=== PATIENT | female | born 1970 | race Caucasian/White ===

== ENCOUNTER → 2016-10-19 | Outpatient (CLI) | payer OTHER ==
[~2016-10-19] MED LIST: MOTRIN PO; MULTTAB4 PO; VITAD1000T PO
[2016-10-19 13:18] LABS: THYROID PEROXIDASE ANTIBODY < 28.0 U/ML (<60.0)
[2016-10-19 13:29] LABS: ALBUMIN 3.9 GM/DL (3.2-5.2); ALBUMIN/GLOBULIN RATIO 1.34 (1.00-1.93); ALKALINE PHOSPHATASE 54 U/L (45-117); ALT/SGPT 17 U/L (12-78); ANION GAP 7 MEQ/L (8-16); AST/SGOT 11 U/L (15-37); BILIRUBIN,TOTAL 0.7 MG/DL (0.2-1.0); BLOOD UREA NITROGEN 18 MG/DL (7-18); CALCIUM LEVEL 8.8 MG/DL (8.5-10.1); CARBON DIOXIDE LEVEL 28 MEQ/L (21-32); CHLORIDE LEVEL 107 MEQ/L (98-107); CREATININE FOR GFR 0.72 MG/DL (0.55-1.02); FREE T4 0.94 NG/DL (0.76-1.46); GLOMERULAR FILTRATION RATE > 60.0 (>58); GLUCOSE, FASTING 88 MG/DL (70-105); POTASSIUM SERUM 4.3 MEQ/L (3.5-5.1); SODIUM LEVEL 142 MEQ/L (136-145); TOTAL PROTEIN 6.8 GM/DL (6.4-8.2)
== END ==
LOC: M SMT 08:54
PROVIDERS: ATTEND Family Medicine
DX: R63.5 Abnormal weight gain (principal); L65.9 Nonscarring hair loss, unspecified

== ENCOUNTER → 2018-02-06 | Outpatient (CLI) | payer OTHER ==
[2018-02-06 14:21] LABS: BASO # 0.1 10^3/uL (0.0-0.2); BASO % 0.8 % (0.0-1.0); EOS # 0.1 10^3/uL (0.0-0.50); EOS % 1.6 % (0.0-3.0); HEMATOCRIT 39.6 % (36.0-47.0); HEMOGLOBIN 13.1 g/dl (12.0-15.5); IMMATURE GRANULOCYTE % 0.3 % (0-3.0); LYMPH # 2.1 10^3/uL (1.5-4.5); MEAN CORPUSCULAR HEMOGLOBIN 29.7 pg (27.0-33.0); MEAN CORPUSCULAR HGB CONC 33.1 g/dl (32.0-36.5); MEAN CORPUSCULAR VOLUME 89.8 fl (80.0-96.0); MONO # 0.4 10^3/uL (0.0-0.8); MONO % 5.5 % (0.0-5.0); NEUTROPHILS # 4.6 10^3/uL (1.8-7.7); NEUTROPHILS % 62.8 % (36.0-66.0); PLATELET COUNT, AUTOMATED 276 10^3/uL (150-450); RED BLOOD COUNT 4.41 10^6/uL (4.00-5.40); RED CELL DISTRIBUTION WIDTH 12.1 % (11.5-14.5); WHITE BLOOD COUNT 7.3 10^3/uL (4.0-10.0)
[2018-02-06 14:34] LABS: ALBUMIN 3.6 GM/DL (3.2-5.2); ALBUMIN/GLOBULIN RATIO 1.06 (1.00-1.93); ALKALINE PHOSPHATASE 53 U/L (45-117); ALT/SGPT 16 U/L (12-78); ANION GAP 6 MEQ/L (8-16); AST/SGOT 11 U/L (7-37); BILIRUBIN,TOTAL 0.6 MG/DL (0.2-1.0); BLOOD UREA NITROGEN 16 MG/DL (7-18); CALCIUM LEVEL 8.6 MG/DL (8.5-10.1); CARBON DIOXIDE LEVEL 27 MEQ/L (21-32); CHLORIDE LEVEL 108 MEQ/L (98-107); CHOLESTEROL LEVEL 193 MG/DL (<200); CHOLESTEROL RISK RATIO 2.757 (<5); CREATININE FOR GFR 0.84 MG/DL (0.55-1.30); FREE T4 0.91 NG/DL (0.76-1.46); GLOMERULAR FILTRATION RATE > 60.0 (>58); GLUCOSE, FASTING 86 MG/DL (70-100); HDL CHOLESTEROL 70 MG/DL (>40); NON-HDL-C 123 MG/DL; POTASSIUM SERUM 4.7 MEQ/L (3.5-5.1); SODIUM LEVEL 141 MEQ/L (136-145); TRIGLYCERIDES LEVEL 130 MG/DL (<150)
[2018-02-06 14:53] LABS: TOTAL 25(OH) VITAMIN D 18.3 NG/ML (30.0-100.0)
== END ==
LOC: M SMT 08:20
DX: Z13.29 Encounter for screening for other suspected endocrine disorder (principal); Z13.220 Encounter for screening for lipoid disorders; Z13.0 Encounter for screening for diseases of the blood and blood-forming organs and certain disorders involving the immune mechanism; E55.9 Vitamin D deficiency, unspecified
CPT/HCPCS: 84443

== ENCOUNTER → 2018-03-13 | Outpatient (CLI) | payer OTHER ==
[2018-03-13 18:10] LABS: FREE T4 1.06 NG/DL (0.76-1.46); THYROID STIMULATING HORMONE 0.651 uIU/ML (0.358-3.740)
[2018-03-13 18:16] LABS: BASO % 0.5 % (0.0-1.0); EOS # 0.1 10^3/uL (0.0-0.50); EOS % 1.1 % (0.0-3.0); HEMATOCRIT 39.2 % (36.0-47.0); HEMOGLOBIN 13.2 g/dl (12.0-15.5); IMMATURE GRANULOCYTE % 0.3 % (0-3.0); LYMPH # 2.1 10^3/uL (1.5-4.5); LYMPH % 27.1 % (24.0-44.0); MEAN CORPUSCULAR HEMOGLOBIN 29.8 pg (27.0-33.0); MEAN CORPUSCULAR HGB CONC 33.7 g/dl (32.0-36.5); MEAN CORPUSCULAR VOLUME 88.5 fl (80.0-96.0); MONO # 0.4 10^3/uL (0.0-0.8); MONO % 5.4 % (0.0-5.0); NEUTROPHILS # 5.2 10^3/uL (1.8-7.7); NEUTROPHILS % 65.6 % (36.0-66.0); PLATELET COUNT, AUTOMATED 283 10^3/uL (150-450); RED BLOOD COUNT 4.43 10^6/uL (4.00-5.40); RED CELL DISTRIBUTION WIDTH 12.6 % (11.5-14.5); WHITE BLOOD COUNT 7.9 10^3/uL (4.0-10.0)
[2018-03-14 11:11] LABS: THYROID PEROXIDASE ANTIBODY < 28.0 U/ML (<60.0)
[2018-03-15 15:28] LABS: TISSUE TRANSGLUTAMINASE IgA <2 U/mL (0-3); TISSUE TRANSGLUTAMINASE IgG <2 U/mL (0-5)
[2018-03-16 00:07] LABS: ANTINUCLEAR ANTIBODIES DIRECT Negative (Negative); Lyme Disease IgG/IgM Antibodie <0.91 ISR (0.00-0.90); Lyme Disease IgM Ab Quantitati <0.80 index (0.00-0.79)
== END ==
LOC: M SMT 15:25
DX: R19.7 Diarrhea, unspecified (principal); L50.8 Other urticaria
CPT/HCPCS: 84443

== ENCOUNTER 2018-12-13 03:51 | Emergency (ER) | payer BC, OTHER ==
[~2018-12-13] VITALS: Ht 170.2 cm; Wt 72.7 kg
[2018-12-13 05:03] LABS: BASO # 0.1 10^3/uL (0.0-0.2); EOS # 0.2 10^3/uL (0.0-0.50); EOS % 2.7 % (0.0-3.0); HEMATOCRIT 41.7 % (36.0-47.0); HEMOGLOBIN 13.9 g/dl (12.0-15.5); LYMPH # 2.1 10^3/uL (1.5-4.5); LYMPH % 35.8 % (24.0-44.0); MEAN CORPUSCULAR HEMOGLOBIN 30.1 pg (27.0-33.0); MEAN CORPUSCULAR HGB CONC 33.3 g/dl (32.0-36.5); MEAN CORPUSCULAR VOLUME 90.3 fl (80.0-96.0); MONO # 0.4 10^3/uL (0.0-0.8); MONO % 6.4 % (0.0-5.0); NEUTROPHILS # 3.2 10^3/uL (1.8-7.7); NEUTROPHILS % 53.9 % (36.0-66.0); PLATELET COUNT, AUTOMATED 262 10^3/uL (150-450); RED BLOOD COUNT 4.62 10^6/uL (4.00-5.40)
[2018-12-13 05:40] LABS: BLOOD UREA NITROGEN 14 MG/DL (7-18); CALCIUM LEVEL 8.4 MG/DL (8.5-10.1); CARBON DIOXIDE LEVEL 25 MEQ/L (21-32); CHLORIDE LEVEL 109 MEQ/L (98-107); CK-MB VALUE MASS < 1.0 NG/ML (<3.6); CPK CREATINE PHOSPHOKINASE 48 U/L (26-192); FREE T4 0.91 NG/DL (0.76-1.46); GLOMERULAR FILTRATION RATE > 60.0 (>58); GLUCOSE, FASTING 86 MG/DL (70-100); MB/CK RELATIVE INDEX 2.08 (< OR =4); POTASSIUM SERUM 4.4 MEQ/L (3.5-5.1); SODIUM LEVEL 141 MEQ/L (136-145); TROPONIN I < 0.02 NG/ML (< 0.10)
[2018-12-13 07:15] VITALS: BP 137/83
--- NOTE | 2018-12-13 08:19 | REP ---
Clinical: Acute chest pain . Comparison: 09/30/2012 . Findings: The mediastinum and cardiac silhouette are stable and within normal limits for portable technique. The lung candelario are clear without acute consolidation, effusion, or pneumothorax. Skeletal structures are intact. Impression: No acute cardiopulmonary process appreciated. Electronically Signed by Artemio Rebolledo MD 12/13/2018 08:09 A
--- NOTE | 2018-12-14 07:00 | ECGEPIP ---
Stationary ECG Study [facility] - ED Test Date: 2018-12-13 Pat Name: DANIAL WEBBER Department: Room: - Gender: F Pediatric Occupational Therapist: NARAYAN : 1970 Requested By: ALMA HERNÁNDEZ Order Number: [id number] Reading MD: Jenifer Swann Measurements Intervals [place] Rate: 84 P: 55 [place]: 146 QRS: 32 QRSD: 93 T: 29 QT: 388 QTc: 460 Interpretive Statements SINUS RHYTHM WITH OCCASIONAL VENTRICULAR PREMATURE COMPLEXES POSSIBLE LEFT ATRIAL ENLARGEMENT TYPE 3 BRUGADA PATTERN (NON-DIAGNOSTIC) Electronically Signed On 12-14-2018 6:59:42 EDT by Jenifer Swann
[2018-12-16 00:07] LABS: Lyme Disease IgG/IgM Antibodie <0.91 ISR (0.00-0.90); Lyme Disease IgM Ab Quantitati <0.80 index (0.00-0.79)
== END 2018-12-13 07:17 | disposition home or self-care (01) ==
LOC: M ED 03:51
DX: R20.2 Paresthesia of skin (principal); R00.2 Palpitations; R51 Headache; M54.9 Dorsalgia, unspecified

== ENCOUNTER 2019-04-16 11:37 | Emergency (ER) | payer BC ==
[~2019-04-16] VITALS: Ht 170.2 cm; Wt 91.0 kg
[2019-04-16] MEDS ORDERED: AMOX875T PO (11:52)
[2019-04-16] MEDS ORDERED: IBUP-1022 PO (11:52)
[2019-04-16] MEDS ORDERED: ONDANSETRON 4MG/2ML VIAL (J2405) IV ONE (13:30)
[2019-04-16] MEDS ORDERED: NS 1,000 ML IV ONE (13:30)
[2019-04-16 13:52] LABS: BASO % 0.4 % (0.0-1.0); EOS # 0.1 10^3/uL (0.0-0.50); EOS % 0.7 % (0.0-3.0); HEMATOCRIT 42.4 % (36.0-47.0); HEMOGLOBIN 14.2 g/dl (12.0-15.5); LYMPH # 1.6 10^3/uL (1.5-4.5); LYMPH % 16.9 % (24.0-44.0); MEAN CORPUSCULAR HEMOGLOBIN 30.1 pg (27.0-33.0); MEAN CORPUSCULAR HGB CONC 33.5 g/dl (32.0-36.5); MONO # 0.4 10^3/uL (0.0-0.8); MONO % 4.7 % (0.0-5.0); NEUTROPHILS % 76.8 % (36.0-66.0); PLATELET COUNT, AUTOMATED 270 10^3/uL (150-450); RED BLOOD COUNT 4.71 10^6/uL (4.00-5.40); WHITE BLOOD COUNT 9.2 10^3/uL (4.0-10.0)
[2019-04-16 14:29] LABS: ALT/SGPT 17 U/L (12-78); BILIRUBIN,DIRECT 0.2 MG/DL (0.0-0.2); BILIRUBIN,TOTAL 0.4 MG/DL (0.2-1.0); BLOOD UREA NITROGEN 12 MG/DL (7-18); CALCIUM LEVEL 9.4 MG/DL (8.5-10.1); CARBON DIOXIDE LEVEL 27 MEQ/L (21-32); CHLORIDE LEVEL 107 MEQ/L (98-107); CK-MB VALUE MASS < 1.0 NG/ML (<3.6); CPK CREATINE PHOSPHOKINASE 53 U/L (26-192); CREATININE FOR GFR 0.74 MG/DL (0.55-1.30); GLOMERULAR FILTRATION RATE > 60.0 (>58); GLUCOSE, FASTING 95 MG/DL (70-100); MAGNESIUM LEVEL 2.3 MG/DL (1.8-2.4); MB/CK RELATIVE INDEX 1.89 (< OR =4); POTASSIUM SERUM 4.6 MEQ/L (3.5-5.1); SODIUM LEVEL 141 MEQ/L (136-145); TOTAL PROTEIN 7.6 GM/DL (6.4-8.2); TROPONIN I < 0.02 NG/ML (< 0.10)
[2019-04-16] MEDS ORDERED: ONDA4TAB6 PO (15:59)
[2019-04-16 16:06] VITALS: BP 153/86
--- NOTE | 2019-04-18 07:44 | ECGEPIP ---
[facility] - ED Test Date: 2019-04-16 Pat Name: DANIAL WEBBER Department: Room: - Gender: Female Communications Station Manager: : 1970 Requested By: JUSTIN SHAFER Order Number: [id number] Reading MD: Jenifer Swann Measurements Intervals [place] Rate: 81 P: 46 [place]: 138 QRS: 24 QRSD: 91 T: 22 QT: 396 QTc: 461 Interpretive Statements SINUS RHYTHM POSSIBLE LEFT ATRIAL ENLARGEMENT POSSIBLE TYPE 3 BRUGADA PATTERN (NON-DIAGNOSTIC) similar to prior EKG 12/13/18 Electronically Signed on 04-18-2019 7:43:49 EDT by Jenifer Swann
== END 2019-04-16 16:07 | disposition home or self-care (01) ==
LOC: M ED 11:37
DX: R11.0 Nausea (principal); R53.81 Other malaise; M54.9 Dorsalgia, unspecified; Z79.2 Long term (current) use of antibiotics
CPT/HCPCS: 80048; 80076; 82550; 82553; 83735; 84443; 85025; 93005; 96374; 99284; J2405

== ENCOUNTER 2019-12-27 15:23 | Emergency (ER) | payer BC ==
[~2019-12-27] VITALS: Ht 170.2 cm; Wt 93.3 kg
[~2019-12-27 15:23] MED LIST changes: +AMOX875T PO; +IBUP-1022 PO; +ONDA4TAB6 PO
[2019-12-27] MEDS ORDERED: ISOVUE-370 76% 100ML VIAL As Ordered ONE (15:44)
[2019-12-27] MEDS ORDERED: ASPIRIN 81 MG CHEW TABLET PO ONE (15:45)
[2019-12-27 15:47] LABS: BASO % 0.6 % (0.0-1.0); EOS # 0.1 10^3/uL (0.0-0.5); HEMATOCRIT 40.7 % (36.0-47.0); HEMOGLOBIN 13.5 g/dl (12.0-15.5); LYMPH # 1.9 10^3/uL (1.5-5.0); LYMPH % 25.6 % (24.0-44.0); MEAN CORPUSCULAR HEMOGLOBIN 29.7 pg (27.0-33.0); MEAN CORPUSCULAR HGB CONC 33.2 g/dl (32.0-36.5); MEAN CORPUSCULAR VOLUME 89.5 fl (80.0-96.0); MONO # 0.3 10^3/uL (0.0-0.8); MONO % 4.7 % (0.0-5.0); NEUTROPHILS # 4.9 10^3/uL (1.5-8.5); NEUTROPHILS % 67.8 % (36.0-66.0); PLATELET COUNT, AUTOMATED 271 10^3/uL (150-450); RED BLOOD COUNT 4.55 10^6/uL (4.00-5.40); WHITE BLOOD COUNT 7.2 10^3/uL (4.0-10.0)
--- NOTE | 2019-12-27 15:57 | ECGEPIP ---
[facility] - ED Test Date: 2019-12-27 Pat Name: DANIAL WEBBER Department: Room: - Gender: Female Door Operator: nav rivero : 1970 Requested By: Jorge Mitchell Order Number: [id number] Reading MD: Jorge Mitchell Measurements Intervals [place] Rate: 85 P: 38 [place]: 136 QRS: 13 QRSD: 110 T: 11 QT: 362 QTc: 432 Interpretive Statements SINUS RHYTHM POSSIBLE LEFT ATRIAL ENLARGEMENT INCOMPLETE RIGHT BUNDLE BRANCH BLOCK POSSIBLE TYPE [address] T WAVE CHANGES CW 04/16/[address] T WAVE CHANGES Electronically Signed on 12-27-2019 15:56:43 EDT by Jorge Mitchell
[2019-12-27 15:59] LABS: INR 1.04; PROTHROMBIN TIME 13.3 SECONDS (11.8-14.0)
[2019-12-27 16:00] LABS: PARTIAL THROMBOPLASTIN TIME 30.1 SECONDS (25.0-38.4)
--- NOTE | 2019-12-27 16:02 | REP ---
Portable chest x-ray: Single view. History: Chest pain. Comparison study: December 13, 2018. Findings: The lungs are well inflated and clear. The pleural angles are sharp. Heart size is normal. Pulmonary vasculature is not increased. No significant bony abnormality is appreciated. Impression: Negative portable chest x-ray. Electronically Signed by Maximilian Correia MD 12/27/2019 03:54 P
[2019-12-27 16:36] LABS: ALBUMIN 3.8 GM/DL (3.2-5.2); ALT/SGPT 15 U/L (12-78); BILIRUBIN,DIRECT 0.1 MG/DL (0.0-0.2); BILIRUBIN,TOTAL 0.6 MG/DL (0.2-1.0); CK-MB VALUE MASS < 1.0 NG/ML (<3.6); CPK CREATINE PHOSPHOKINASE 48 U/L (26-192); FREE T4 1.09 NG/DL (0.76-1.46); LIPASE 119 U/L (73-393); MB/CK RELATIVE INDEX 2.08 (< OR =4); THYROID STIMULATING HORMONE 0.927 uIU/ML (0.358-3.740); TOTAL PROTEIN 7.4 GM/DL (6.4-8.2); TROPONIN I < 0.02 NG/ML (< 0.10)
[2019-12-27] MEDS ORDERED: KETOROLAC 30 MG/ML 1ML VIAL IV ONE (16:45)
[2019-12-27 17:15] VITALS: BP 146/93
--- NOTE | 2019-12-28 00:54 | REP ---
CT PULMONARY ANGIOGRAM WITH IV CONTRAST: HISTORY: Chest pain. Rule out pulmonary embolus. COMPARISON STUDIES: No comparison chest CT. Comparison chest x-ray is from earlier this date. CONTRAST DOSE: 75 mL of Isovue-[address] TECHNIQUE: Helical scanning is acquired and overlapping 1.5 mm and contiguous 3 mm axial images are reformatted. In addition, maximum intensity projection and multiplanar re-formation images are generated in sagittal and coronal imaging projections. CT PULMONARY ANGIOGRAPHIC FINDINGS: There is good opacification of the pulmonary arterial tree. There is no CT evidence of pulmonary embolus. Thoracic aorta enhances homogeneously. There is no evidence of dissection or aneurysm. The ascending aorta measures 3.6 cm in anteroposterior dimension at the level of the right main pulmonary artery. There is no evidence of pleural or pericardial effusion. No hilar or mediastinal mass or adenopathy is observed. Visualized upper abdominal structures are unremarkable. No bony abnormality is seen. IMPRESSION: Negative CT pulmonary angiogram. No CT evidence of pulmonary embolus. No acute cardiopulmonary disease seen. Unreviewed
== END 2019-12-27 17:30 | disposition home or self-care (01) ==
LOC: M ED 15:23
DX: R07.9 Chest pain, unspecified (principal); R94.31 Abnormal electrocardiogram [ECG] [EKG]; Z79.899 Other long term (current) drug therapy
CPT/HCPCS: 71045; 71275; 80047; 80076; 82550; 82553; 83690; 84439; 84443; 85025; 85610; 85730; 93005; 93041; 94760; 96374; 99285; J1885; Q9967

== ENCOUNTER 2020-01-08 03:38 | Emergency (ER) | payer BC ==
[~2020-01-08] VITALS: Ht 170.2 cm; Wt 92.7 kg
[~2020-01-08 03:38] MED LIST changes: -HYDR25TAB; -LOSA50TA88; -OMEP40CA97 PO
[2020-01-08] MEDS ORDERED: OMEP40CA97 PO (04:21)
[2020-01-08 04:23] LABS: BASO # 0.1 10^3/uL (0.0-0.2); BASO % 0.7 % (0.0-1.0); EOS # 0.1 10^3/uL (0.0-0.5); EOS % 1.6 % (0.0-3.0); HEMATOCRIT 39.1 % (36.0-47.0); LYMPH # 2.6 10^3/uL (1.5-5.0); LYMPH % 36.7 % (24.0-44.0); MEAN CORPUSCULAR HEMOGLOBIN 29.8 pg (27.0-33.0); MEAN CORPUSCULAR HGB CONC 33.2 g/dl (32.0-36.5); MEAN CORPUSCULAR VOLUME 89.7 fl (80.0-96.0); MONO # 0.4 10^3/uL (0.0-0.8); MONO % 6.3 % (0.0-5.0); NEUTROPHILS # 3.8 10^3/uL (1.5-8.5); NEUTROPHILS % 54.4 % (36.0-66.0); PLATELET COUNT, AUTOMATED 253 10^3/uL (150-450); RED BLOOD COUNT 4.36 10^6/uL (4.00-5.40)
[2020-01-08 04:52] LABS: ALBUMIN 3.7 GM/DL (3.2-5.2); ALT/SGPT 19 U/L (12-78); BILIRUBIN,DIRECT < 0.1 MG/DL (0.0-0.2); BILIRUBIN,TOTAL 0.2 MG/DL (0.2-1.0); BLOOD UREA NITROGEN 13 MG/DL (7-18); CALCIUM LEVEL 8.3 MG/DL (8.5-10.1); CARBON DIOXIDE LEVEL 26 MEQ/L (21-32); CHLORIDE LEVEL 112 MEQ/L (98-107); CK-MB VALUE MASS < 1.0 NG/ML (<3.6); CPK CREATINE PHOSPHOKINASE 82 U/L (26-192); CREATININE FOR GFR 0.97 MG/DL (0.55-1.30); GLOMERULAR FILTRATION RATE > 60.0 (>58); GLUCOSE, FASTING 88 MG/DL (70-100); LIPASE 170 U/L (73-393); MB/CK RELATIVE INDEX 1.22 (< OR =4); POTASSIUM SERUM 3.8 MEQ/L (3.5-5.1); SODIUM LEVEL 145 MEQ/L (136-145); TOTAL PROTEIN 7.4 GM/DL (6.4-8.2); TROPONIN I < 0.02 NG/ML (< 0.10)
[2020-01-08] MEDS ORDERED: PANTOPRAZOLE 40MG VIAL (C9113 PER 1) IV ONE (05:00)
[2020-01-08 09:37] LABS: CK-MB VALUE MASS < 1.0 NG/ML (<3.6); CPK CREATINE PHOSPHOKINASE 72 U/L (26-192); MB/CK RELATIVE INDEX 1.39 (< OR =4); TROPONIN I < 0.02 NG/ML (< 0.10)
[2020-01-08 10:15] VITALS: BP 143/88
--- NOTE | 2020-01-08 13:01 | ECGEPIP ---
[facility] - ED Test Date: 2020-01-08 Pat Name: DANIAL WEBBER Department: Room: - Gender: Female First Officer: janki : 1970 Requested By: Otis Balbuena Order Number: [id number] Reading MD: Otis Rudd Measurements Intervals [place] Rate: 106 P: 53 [place]: 177 QRS: 30 QRSD: 88 T: 31 QT: 342 QTc: 456 Interpretive Statements SINUS TACHYCARDIA POSSIBLE LEFT ATRIAL ENLARGEMENT INCOMPLETE RIGHT BUNDLE BRANCH BLOCK RATE CHANGE COMPARED TO 12/27/19 Electronically Signed on 01-08-2020 13:01:30 EDT by Otis Rudd
--- NOTE | 2020-01-08 22:50 | ECGEPIP ---
[facility] - ED Test Date: 2020-01-08 Pat Name: DANIAL WEBBER Department: Room: - Gender: Female Process Control Engineer: : 1970 Requested By: Otis Balbuena Order Number: [id number] Reading MD: Otis Rudd Measurements Intervals [place] Rate: 91 P: 40 [place]: 137 QRS: 20 QRSD: 91 T: 25 QT: 369 QTc: 454 Interpretive Statements SINUS RHYTHM INCOMPLETE RIGHT BUNDLE BRANCH BLOCK SIMILAR TO PRIOR ON SAME DATE Electronically Signed on 01-08-2020 22:50:17 EDT by Otis Rudd
[2020-01-13] MEDS ORDERED: LOSA50TA88 (03:56)
[2020-01-13] MEDS ORDERED: HYDR25TAB (03:56)
== END 2020-01-08 10:22 | disposition home or self-care (01) ==
LOC: M ED 03:38
DX: R07.89 Other chest pain (principal)
CPT/HCPCS: 80048; 80076; 82550; 82553; 83690; 85025; 93005; 93041; 94760; 96374; 99285; C9113

== ENCOUNTER → 2020-01-08 | Outpatient (REF) | payer BC ==
[~2020-01-08] MED LIST changes: +HYDR25TAB; +LOSA50TA88; +OMEP40CA97 PO
== END ==
LOC: M LAB REF 15:21
PROVIDERS: ATTEND Internal Medicine Cardiovascular Disease
DX: R07.2 Precordial pain (principal)

== ENCOUNTER → 2020-06-15 | Outpatient (CLI) | payer BC ==
[~2020-06-15] MED LIST changes: +AMLO1TAB24 PO; +CHLO125TA PO; +HYDR25TAB; +LOSA50TA88; +LOSA50TA88 PO; +OMEP40CA97 PO; +PANT40TA29 PO
== END ==
LOC: M LABSMTC 11:38
PROVIDERS: ATTEND Anesthesiology
DX: Z01.812 Encounter for preprocedural laboratory examination (principal); Z20.828 Contact with and (suspected) exposure to other viral communicable diseases
CPT/HCPCS: C9803; U0003

== ENCOUNTER 2020-06-20 11:50 | Day surgery (SDC) | payer BC ==
[~2020-06-20] VITALS: Ht 170.2 cm; Wt 88.9 kg
[~2020-06-20 11:50] MED LIST changes: +NS 1,000 ML IV ONE; +propofoL 500 MG/50 ML VIAL As Ordered ONE
[2020-06-20] MEDS ORDERED: fentaNYL 100 MCG/2 ML INJECTION (J3010) As Ordered ONE (12:16)
[2020-06-20] MEDS ORDERED: LIDOCAINE 2% 100MG/5ML SDV (FOR ANES.) As Ordered ONE (13:41)
--- NOTE | 2020-06-20 14:31 | ROOR ---
Patient Name: Isa Obrien Procedure Date: 06/20/2020 1:41 PM Date of : 1970 Age: 49 Room: [facility] Gender: Female Note Status: Finalized Procedure: Upper GI endoscopy Indications: Unexplained chest pain, Chest pain (non cardiac) Providers: See Phan MD Referring MD: Jayla ORTIZ DO Requesting Provider: Medicines: Monitored Anesthesia Care Complications: No immediate complications. Procedure: Pre-Anesthesia Assessment: - Prior to the procedure, a History and Physical was performed, and patient medications and allergies were reviewed. The patient is competent. The risks and benefits of the procedure and the sedation options and risks were discussed with the patient. All questions were answered and informed consent was obtained. Patient identification and proposed procedure were verified by the physician, the nurse and the anesthesiologist in the procedure room. Mental Status Examination: alert and oriented. Airway Examination: normal oropharyngeal airway and neck mobility. Respiratory Examination: clear to auscultation. CV Examination: normal. Prophylactic Antibiotics: The patient does not require prophylactic antibiotics. Prior Anticoagulants: The patient has taken no previous anticoagulant or antiplatelet agents. ASA Grade Assessment: II - A patient with mild systemic disease. After reviewing the risks and benefits, the patient was deemed in satisfactory condition to undergo the procedure. The anesthesia plan was to use monitored anesthesia care (MAC). Immediately prior to administration of medications, the patient was re-assessed for adequacy to receive sedatives. The heart rate, respiratory rate, oxygen saturations, blood pressure, adequacy of pulmonary ventilation, and response to care were monitored throughout the procedure. The physical status of the patient was re-assessed after the procedure. The Endoscope was introduced through the mouth, and advanced to the second part of duodenum. The upper GI endoscopy was accomplished without difficulty. The patient tolerated the procedure well. Findings: No gross lesions were noted in the entire esophagus. Biopsies were obtained from the proximal and distal esophagus with cold forceps for histology of suspected eosinophilic esophagitis. Verification of patient identification for the specimen was done by the physician and nurse using the patient's name, date and medical record number. Estimated blood loss was minimal. The Z-line was regular and was found 40 cm from the incisors. Scattered mild inflammation characterized by erythema, friability and granularity was found in the gastric antrum. Biopsies were taken with a cold forceps for Helicobacter pylori testing. The duodenal bulb and second portion of the duodenum were normal. Impression: - No gross lesions in esophagus. Biopsied. - Z-line regular, 40 cm from the incisors. - Gastritis. Biopsied. - Normal duodenal bulb and second portion of the duodenum. Recommendation: - Patient has a contact number available for emergencies. The signs and symptoms of potential delayed complications were discussed with the patient. Return to normal activities tomorrow. Written discharge instructions were provided to the patient. - High fiber diet. - Continue present medications. - Await pathology results. - Telephone GI clinic for pathology results in 2 weeks. - Return to GI clinic if persistent symptoms or new symptoms. - Return to primary care physician. See Phan MD See Phan MD 06/20/2020 2:31:07 PM Electronically signed by See Phan MD Number of Addenda: 0 Note Initiated On: 06/20/2020 1:41 PM Estimated Blood Loss: Estimated blood loss was minimal.
--- NOTE | 2020-06-20 14:48 | ROOR ---
Patient Name: Isa Obrien Procedure Date: 06/20/2020 1:42 PM Date of : 1970 Age: 49 Room: [facility] Gender: Female Note Status: Finalized Procedure: Colonoscopy Indications: Screening for colon cancer: Family history of colorectal cancer in distant relative(s) before age 60 Providers: See Phan MD Referring MD: Jayla ORTIZ DO Requesting Provider: Medicines: Monitored Anesthesia Care Complications: No immediate complications. Procedure: Pre-Anesthesia Assessment: - Prior to the procedure, a History and Physical was performed, and patient medications and allergies were reviewed. The patient is competent. The risks and benefits of the procedure and the sedation options and risks were discussed with the patient. All questions were answered and informed consent was obtained. Patient identification and proposed procedure were verified by the physician, the nurse and the anesthesiologist in the procedure room. Mental Status Examination: alert and oriented. CV Examination: normal. Prophylactic Antibiotics: The patient does not require prophylactic antibiotics. Prior Anticoagulants: The patient has taken no previous anticoagulant or antiplatelet agents. After reviewing the risks and benefits, the patient was deemed in satisfactory condition to undergo the procedure. The anesthesia plan was to use monitored anesthesia care (MAC). Immediately prior to administration of medications, the patient was re-assessed for adequacy to receive sedatives. The heart rate, respiratory rate, oxygen saturations, blood pressure, adequacy of pulmonary ventilation, and response to care were monitored throughout the procedure. The physical status of the patient was re-assessed after the procedure. The Colonoscope was introduced through the anus and advanced to the terminal ileum, with identification of the appendiceal orifice and IC valve. The colonoscopy was performed without difficulty. The patient tolerated the procedure well. The quality of the bowel preparation was good. The terminal ileum, ileocecal valve, appendiceal orifice, and rectum were photographed. Scope insertion time was 3 minutes. Scope withdrawal time was 9 minutes. The total duration of the procedure was 12 minutes. Findings: The perianal and digital rectal examinations were normal. The terminal ileum appeared normal. Five sessile polyps were found in the rectum, descending colon, transverse colon and ascending colon. The polyps were 4 to 10 mm in size. These polyps were removed with a hot snare. Resection and retrieval were complete. Verification of patient identification for the specimen was done by the physician and nurse using the patient's name, date and medical record number. Estimated blood loss was minimal. Multiple small-mouthed diverticula were found in the sigmoid colon. There was no evidence of diverticular bleeding. Non-bleeding external and internal hemorrhoids were found during retroflexion. The hemorrhoids were medium-sized. Impression: - The examined portion of the ileum was normal. - Five 4 to 10 mm polyps in the rectum, in the descending colon, in the transverse colon and in the ascending colon, removed with a hot snare. Resected and retrieved. - Moderate diverticulosis in the sigmoid colon. There was no evidence of diverticular bleeding. - Non-bleeding external and internal hemorrhoids. Recommendation: - Patient has a contact number available for emergencies. The signs and symptoms of potential delayed complications were discussed with the patient. Return to normal activities tomorrow. Written discharge instructions were provided to the patient. - High fiber diet. - Continue present medications. - Await pathology results. - Repeat colonoscopy in 3 years for surveillance of multiple polyps and due to family history of colon cancer. - Telephone GI clinic for pathology results in 2 weeks. - Return to primary care physician. See Phan MD See Phan MD 06/20/2020 2:47:25 PM Electronically signed by See Phan MD Number of Addenda: 0 Note Initiated On: 06/20/2020 1:42 PM Estimated Blood Loss: Estimated blood loss was minimal.
[2020-06-20 14:55] VITALS: BP 112/61
== END 2020-06-20 15:18 | disposition home or self-care (01) ==
LOC: M OPP 11:50
PROVIDERS: ATTEND Internal Medicine Gastroenterology
DX: Z12.11 Encounter for screening for malignant neoplasm of colon (principal); Z80.0 Family history of malignant neoplasm of digestive organs; R07.89 Other chest pain; K63.5 Polyp of colon; K57.30 Diverticulosis of large intestine without perforation or abscess without bleeding; K64.8 Other hemorrhoids; D13.0 Benign neoplasm of esophagus; D13.1 Benign neoplasm of stomach; K29.70 Gastritis, unspecified, without bleeding; I10 Essential (primary) hypertension; G43.909 Migraine, unspecified, not intractable, without status migrainosus; Z79.899 Other long term (current) drug therapy
CPT/HCPCS: 43239; 45385; 88305; J3010

== ENCOUNTER → 2021-04-20 | Outpatient (CLI) | payer BC ==
[~2021-04-20] MED LIST changes: +HYDR-3490; -HYDR25TAB; -NS 1,000 ML IV ONE; +OMEP40CA4 PO; -OMEP40CA97 PO; -propofoL 500 MG/50 ML VIAL As Ordered ONE
== END ==
LOC: M LAB 15:07
PROVIDERS: ATTEND Internal Medicine Endocrinology, Diabetes & Metabolism
DX: D35.02 Benign neoplasm of left adrenal gland (principal)

== ENCOUNTER 2021-09-25 04:18 | Emergency (ER) | payer BC ==
[~2021-09-25] VITALS: Ht 172.7 cm; Wt 101.9 kg
[~2021-09-25 04:18] MED LIST changes: +LOSA50TA28; +LOSA50TA28 PO; -LOSA50TA88; -LOSA50TA88 PO
[2021-09-25] MEDS ORDERED: FURO20TA2 (04:27)
[2021-09-25] MEDS ORDERED: ISOS1TAB35 (04:27)
[2021-09-25] MEDS ORDERED: ROSU5TAB5 (04:27)
[2021-09-25 04:57] LABS: BASO % 0.5 % (0.0-1.0); EOS # 0.1 10^3/uL (0.0-0.5); EOS % 1.7 % (0.0-3.0); HEMATOCRIT 39.5 % (36.0-47.0); HEMOGLOBIN 13.2 g/dl (12.0-15.5); LYMPH # 2.9 10^3/uL (1.5-5.0); LYMPH % 37.5 % (24.0-44.0); MEAN CORPUSCULAR HEMOGLOBIN 29.3 pg (27.0-33.0); MEAN CORPUSCULAR HGB CONC 33.4 g/dl (32.0-36.5); MEAN CORPUSCULAR VOLUME 87.6 fl (80.0-96.0); MONO # 0.6 10^3/uL (0.0-0.8); MONO % 7.3 % (2.0-8.0); NEUTROPHILS # 4.1 10^3/uL (1.5-8.5); NEUTROPHILS % 52.7 % (36.0-66.0); PLATELET COUNT, AUTOMATED 242 10^3/uL (150-450); RED BLOOD COUNT 4.51 10^6/uL (4.00-5.40); WHITE BLOOD COUNT 7.7 10^3/uL (4.0-10.0)
[2021-09-25 05:28] LABS: BLOOD UREA NITROGEN 12 MG/DL (7-18); CALCIUM LEVEL 8.7 MG/DL (8.5-10.1); CARBON DIOXIDE LEVEL 26 MEQ/L (21-32); CHLORIDE LEVEL 104 MEQ/L (98-107); CREATININE FOR GFR 0.71 MG/DL (0.55-1.30); GLOMERULAR FILTRATION RATE > 60.0 (>58); GLUCOSE, FASTING 99 MG/DL (70-100); POTASSIUM SERUM 3.5 MEQ/L (3.5-5.1); SODIUM LEVEL 138 MEQ/L (136-145)
[2021-09-25 05:45] LABS: CK-MB VALUE MASS < 1.0 NG/ML (<3.6); CPK CREATINE PHOSPHOKINASE 83 U/L (26-192)
[2021-09-25 06:11] LABS: CK-MB VALUE MASS < 1.0 NG/ML (<3.6); CPK CREATINE PHOSPHOKINASE 73 U/L (26-192); MB/CK RELATIVE INDEX 1.37 (< OR =4)
[2021-09-25] MEDS ORDERED: ISOVUE-370 76% 100ML VIAL As Ordered ONE (07:20)
[2021-09-25 09:23] VITALS: BP 142/77
== END 2021-09-25 09:25 | disposition home or self-care (01) ==
LOC: M ED 04:18
DX: R07.89 Other chest pain (principal); R91.8 Other nonspecific abnormal finding of lung field; J98.11 Atelectasis; R20.2 Paresthesia of skin; E27.9 Disorder of adrenal gland, unspecified; I10 Essential (primary) hypertension; Z79.899 Other long term (current) drug therapy
CPT/HCPCS: 36415; 71045; 71275; 80048; 82550; 82553; 85025; 93005; 93041; 94760; 99285; Q9967

== ENCOUNTER → 2021-12-13 | Outpatient (CLI) | payer BC ==
[~2021-12-13] MED LIST changes: +FURO20TA2; +ISOS1TAB35; +ROSU5TAB5
== END ==
LOC: M WHC 12:38
PROVIDERS: ATTEND Family Medicine
DX: E07.9 Disorder of thyroid, unspecified (principal)

== ENCOUNTER 2022-10-25 16:58 | Emergency (ER) | payer BC ==
[~2022-10-25] VITALS: Ht 170.2 cm; Wt 86.4 kg
[2022-10-25 16:58] VITALS: BP 151/92
[2022-10-25 17:41] LABS: BASO % 0.4 % (0.0-1.0); EOS # 0.1 10^3/uL (0.0-0.5); EOS % 1.2 % (0.0-3.0); HEMATOCRIT 38.2 % (36.0-47.0); HEMOGLOBIN 12.3 g/dl (12.0-15.5); LYMPH # 2.1 10^3/uL (1.5-5.0); LYMPH % 25.2 % (24.0-44.0); MEAN CORPUSCULAR HEMOGLOBIN 29.4 pg (27.0-33.0); MEAN CORPUSCULAR HGB CONC 32.2 g/dl (32.0-36.5); MEAN CORPUSCULAR VOLUME 91.2 fl (80.0-96.0); MONO # 0.5 10^3/uL (0.0-0.8); MONO % 6.2 % (2.0-8.0); NEUTROPHILS # 5.5 10^3/uL (1.5-8.5); NEUTROPHILS % 66.9 % (36.0-66.0); PLATELET COUNT, AUTOMATED 249 10^3/uL (150-450); RED BLOOD COUNT 4.19 10^6/uL (4.00-5.40); WHITE BLOOD COUNT 8.2 10^3/uL (4.0-10.0)
[2022-10-25 17:52] LABS: INR 0.9; PROTHROMBIN TIME 12.3 SECONDS (12.5-14.5)
[2022-10-25 17:53] LABS: PARTIAL THROMBOPLASTIN TIME 28.6 SECONDS (24.8-34.2)
[2022-10-25 18:10] LABS: LIPASE 34 U/L (12-53)
[2022-10-25 18:12] LABS: CPK CREATINE PHOSPHOKINASE 80 U/L (34-145)
[2022-10-25 18:16] LABS: ALBUMIN 3.5 G/DL (3.2-5.2); ALKALINE PHOSPHATASE 74 U/L (46-116); ALT/SGPT 17 U/L (7.0-40); AST/SGOT 18 U/L (<34); BILIRUBIN,DIRECT 0.2 MG/DL (<0.4); BILIRUBIN,TOTAL 0.6 MG/DL (0.3-1.2); BLOOD UREA NITROGEN 16 MG/DL (9-23); CALCIUM LEVEL 8.7 MG/DL (8.5-10.1); CARBON DIOXIDE LEVEL 26 MMOL/L (20-31); CHLORIDE LEVEL 103 MMOL/L (98-107); CK-MB VALUE MASS < 1.0 NG/ML (<3.6); CREATININE FOR GFR 0.74 MG/DL (0.55-1.30); FREE T4 1.01 NG/DL (0.89-1.76); GLOMERULAR FILTRATION RATE > 60.0 (>51); GLUCOSE, FASTING 95 MG/DL (60-100); MB/CK RELATIVE INDEX 1.25 (< OR =4); POTASSIUM SERUM 4.2 MMOL/L (3.5-5.1); SODIUM LEVEL 137 MMOL/L (136-145); THYROID STIMULATING HORMONE 1.263 uIU/ML (0.55-4.78); TOTAL PROTEIN 6.5 G/DL (5.7-8.2)
[2022-10-25 19:39] LABS: CK-MB VALUE MASS < 1.0 NG/ML (<3.6)
[2022-10-25 19:41] LABS: CPK CREATINE PHOSPHOKINASE 81 U/L (34-145); MB/CK RELATIVE INDEX 1.23 (< OR =4)
== END 2022-10-25 20:40 | disposition left against medical advice (07) ==
LOC: M ED 16:58
DX: Z53.21 Procedure and treatment not carried out due to patient leaving prior to being seen by health care provider (principal)

== ENCOUNTER → 2024-07-02 | Outpatient (CLI) | payer BC ==
[~2024-07-02] MED LIST changes: +ONDA-282 PO; -ONDA4TAB6 PO; +ROSU5TAB40; -ROSU5TAB5
[2024-07-02 18:35] LABS: BASO % 0.5 % (0.0-1.0); EOS # 0.1 10^3/uL (0.0-0.5); EOS % 0.8 % (0.0-3.0); HEMATOCRIT 36.8 % (36.0-47.0); HEMOGLOBIN 12.2 g/dl (12.0-15.5); LYMPH # 1.6 10^3/uL (1.5-5.0); LYMPH % 19.4 % (24.0-44.0); MEAN CORPUSCULAR HEMOGLOBIN 31.6 pg (27.0-33.0); MEAN CORPUSCULAR HGB CONC 33.2 g/dl (32.0-36.5); MEAN CORPUSCULAR VOLUME 95.3 fl (80.0-96.0); MONO # 0.6 10^3/uL (0.0-0.8); MONO % 7.4 % (2.0-8.0); NEUTROPHILS # 5.9 10^3/uL (1.5-8.5); NEUTROPHILS % 71.5 % (36.0-66.0); PLATELET COUNT, AUTOMATED 267 10^3/uL (150-450); RED BLOOD COUNT 3.86 10^6/uL (4.00-5.40); WHITE BLOOD COUNT 8.3 10^3/uL (4.0-10.0)
[2024-07-02 19:03] LABS: ALBUMIN 3.5 G/DL (3.2-5.2); ALKALINE PHOSPHATASE 82 U/L (46-116); ALT/SGPT 20 U/L (7.0-40); AST/SGOT 10 U/L (<34); BILIRUBIN,TOTAL 0.5 MG/DL (0.3-1.2); BLOOD UREA NITROGEN 18 MG/DL (9-23); CALCIUM LEVEL 9.3 MG/DL (8.5-10.1); CARBON DIOXIDE LEVEL 26 MMOL/L (20-31); CHLORIDE LEVEL 105 MMOL/L (98-107); CREATININE FOR GFR 0.66 MG/DL (0.55-1.30); GLOMERULAR FILTRATION RATE > 60.0 (>51); GLUCOSE, FASTING 90 MG/DL (60-100); IMMUNOGLOBULIN A 285.6 MG/DL (40-350); POTASSIUM SERUM 4.2 MMOL/L (3.5-5.1); SODIUM LEVEL 138 MMOL/L (136-145); TOTAL PROTEIN 6.7 G/DL (5.7-8.2)
[2024-07-02 19:05] LABS: FREE T4 1.05 NG/DL (0.89-1.76); THYROID STIMULATING HORMONE 1.433 uIU/ML (0.55-4.78)
== END ==
LOC: M LRY 14:30
PROVIDERS: ATTEND Physician Assistant Medical
DX: K62.5 Hemorrhage of anus and rectum (principal); R19.7 Diarrhea, unspecified

== ENCOUNTER → 2024-07-20 | Outpatient (CLI) | payer BC ==
[~2024-07-20] MED LIST changes: +ISOVUE-370 76% 100ML VIAL As Ordered ONE; -ROSU5TAB40; +ROSU5TAB49
== END ==
LOC: M RAD 13:16
PROVIDERS: ATTEND Physician Assistant Medical
DX: R19.7 Diarrhea, unspecified (principal)
CPT/HCPCS: 74177; 83993; 87507; Q9967

== ENCOUNTER 2024-11-23 09:32 | Day surgery (SDC) | payer BC ==
[~2024-11-23] VITALS: Ht 170.2 cm; Wt 103.4 kg
[~2024-11-23 09:32] MED LIST changes: -FURO20TA2; +FURO20TA2 PO; -ISOS1TAB35; +ISOS1TAB35 PO; -ISOVUE-370 76% 100ML VIAL As Ordered ONE; +LEXA1TAB2 PO; +MULT-90 PO; -ROSU5TAB49; +ROSU5TAB49 PO
[2024-11-23 10:55] VITALS: TEMP 97.2
[2024-11-23 11:10] VITALS: BP 134/74; O2SAT 95
== END 2024-11-23 11:16 | disposition home or self-care (01) ==
LOC: M OPP 09:32
PROVIDERS: ATTEND Internal Medicine Gastroenterology
DX: D12.3 Benign neoplasm of transverse colon (principal); K57.30 Diverticulosis of large intestine without perforation or abscess without bleeding; K64.8 Other hemorrhoids; Z86.0100 Personal history of colon polyps, unspecified; Z79.899 Other long term (current) drug therapy

== ENCOUNTER → 2024-12-08 | Outpatient (CLI) | payer BC | LOC: M WUC 11:50 | PROVIDERS: ATTEND Physician Assistant | DX: M25.571 Pain in right ankle and joints of right foot (principal); M79.604 Pain in right leg; M25.551 Pain in right hip ==